=== PATIENT | female | born 1965 | race Caucasian/White ===

== ENCOUNTER 2016-10-16 09:09 | Inpatient (IN) ==
--- NOTE | 2016-10-15 20:46 | Discharge Summary ---
<Marcela Frank - Last Filed: 10/15/16 20:44> Date of Encounter: 10/17/16 - Discharge Diagnosis (1) Arthritis of knee, left Priority: Primary Status: Acute (2) HTN (hypertension) Priority: Secondary Status: Chronic Qualifiers: Hypertension type: essential hypertension Qualified Code(s): I10 - Essential (primary) hypertension (3) GERD (gastroesophageal reflux disease) Priority: Secondary Status: Chronic Qualifiers: Esophagitis presence: esophagitis presence not specified Qualified Code(s) : K21.9 - Gastro-esophageal reflux disease without esophagitis (4) Asthma Priority: Secondary Status: Chronic Qualifiers: Asthma severity: unspecified severity Asthma complication type: uncomplicated Qualified Code(s): J45.909 - Unspecified asthma, uncomplicated (5) Obesity Priority: Secondary Status: Chronic Qualifiers: Obesity type: unspecified obesity type Obesity severity: unspecified obesity severity Qualified Code(s): E66.9 - Obesity, unspecified - Discharge Medications Home Medications: Albuterol Sulfate [Ventolin Hfa] 1 puff IH Q6H PRN 08/02/16 [History] Buspirone HCl [Buspar] 10 mg PO TID 08/02/16 [History] Citalopram Hydrobromide [Citalopram HBr] 40 mg PO DAILY 08/02/16 [History] Cyanocobalamin (Vitamin B-12) [Vitamin B-12] 1,000 mcg SL DAILY 08/02/16 [ History] Gabapentin [Neurontin] 800 mg PO QID 08/02/16 [History] Lisinopril [Zestril] 10 mg PO DAILY 08/02/16 [History] Loratadine [Claritin] 10 mg PO DAILY 08/02/16 [History] Meloxicam 15 mg PO DAILY 08/02/16 [History] Methocarbamol [Robaxin] 750 mg PO TID 08/02/16 [History] Montelukast [Singulair] 10 mg PO DAILY 08/02/16 [History] Omeprazole [PriLOSEC] 40 mg PO DAILY 08/02/16 [History] SUMAtriptan Succinate [Imitrex] 100 mg PO DAILY PRN 08/02/16 [History] TraZODone 50 - 100 mg PO HS 08/02/16 [History] Vitamin E 1,000 unit PO DAILY 08/02/16 [History] Aspirin Enteric Coated [Aspirin EC] 325 mg PO DAILY #21 tablet. 10/15/16 [Rx] Enoxaparin [Lovenox] 30 mg SQ Q12HR #20 syr 10/15/16 [Rx] OxyCODONE Immed Rel [Roxicodone 5 MG] 5 mg PO Q6HR PRN #40 tablet 10/15/16 [Rx] Calcium Carbonate [Calcium] 600 mg PO DAILY 10/16/16 [History] HYDROcodone/Acet 7.5/325 mg [Etlan 7.5-325 mg] 1 tab PO TID PRN 10/16/16 [ History] Ipratropium [place] 2 spr NS DAILY PRN 10/16/16 [History] Mometasone/Formoterol [Dulera 200 Mcg/5 Mcg Inhaler] 2 puff IH BID 10/16/16 [ History] Multivitamin [Multi-Day Vitamins] 1 each PO DAILY 10/16/16 [History] Promethazine/Dextromethorphan [Promethazine-Dm Syrup] 5 ml PO Q6H PRN 10/16/16 [ History] Topiramate [Topamax] 50 mg PO BID 10/16/16 [History] Allergies/Adverse Reactions: Allergies aspirin Adverse Reaction (Verified 10/16/16 10:20) Nausea ibuprofen Adverse Reaction (Verified 10/16/16 10:20) Nausea naproxen [From Aleve] Adverse Reaction (Verified 10/16/16 10:20) Nausea Primary care physician: Angela Sepulveda DO - Patient Status Disposition: Home, Self-Care Condition: Good - Discharge Instructions Follow Up With: Steven Maddox MD [Partnered Physician] - 11/14/16 10:30 am Marcela Frank PAC [Physician Strickler Attendant] - 10/26/16 9:15 am Jewel Suresh DO [Partnered Physician] - 11/08/16 11:00 am Angela Sepulveda DO [Primary Care Provider] - 11/08/16 8:30 am - Hospital Course Hospital course: Ms. Krueger is a 51 year old female - Time Spent with Patient Total time spent providing and/or coordinating discharge services: <Steven Maddox - Last Filed: 10/18/16 08:46> Date of Encounter: 10/18/16 Time of Encounter: 08:46 - Discharge Diagnosis (1) Arthritis of knee, left Priority: Primary Status: Acute (2) Asthma Priority: Secondary Status: Chronic Qualifiers: Asthma severity: unspecified severity Asthma complication type: uncomplicated Qualified Code(s): J45.909 - Unspecified asthma, uncomplicated (3) GERD (gastroesophageal reflux disease) Priority: Secondary Status: Chronic Qualifiers: Esophagitis presence: esophagitis presence not specified Qualified Code(s) : K21.9 - Gastro-esophageal reflux disease without esophagitis (4) HTN (hypertension) Priority: Secondary Status: Chronic Qualifiers: Hypertension type: essential hypertension Qualified Code(s): I10 - Essential (primary) hypertension (5) Obesity Priority: Secondary Status: Chronic Qualifiers: Obesity type: unspecified obesity type Obesity severity: unspecified obesity severity Qualified Code(s): E66.9 - Obesity, unspecified Primary care physician: Angela Sepulveda DO - Patient Status Functional capacity at discharge: uses cane/walker Overall status at discharge: patient is progressing back to baseline - Hospital Course Hospital course: Ms. Krueger is a 51 year old female The patient had an uneventful postoperative course. They received antibiotics and physical therapy and were discharged in stable condition. There will follow -up in the office in 2 weeks. - Time Spent with Patient Total time spent providing and/or coordinating discharge services:
[2016-10-16] MEDS ORDERED: *HR* Propofol 200 MG/20 ML VIAL IVP ONE (09:12)
[2016-10-16] MEDS ORDERED: Lidocaine -MPF 2% 2 ML VIAL ONE (09:12)
[2016-10-16] MEDS ORDERED: *HR* FentaNYL (PF) 100 MCG/2 ML VIAL ONE (09:12)
[2016-10-16] MEDS ORDERED: *HR* Midazolam HCl 2 MG/2 ML VIAL ONE ×2 (09:12→10:19)
[2016-10-16] MEDS ORDERED: CeFAZolin Pre 2,000 MG/100 ML 2,000 MG/100 ML BAG IVPB ONE (09:29)
[2016-10-16] MEDS ORDERED: Albuterol 2.5 MG/3 ML NEBULIZER IH ONE (09:29)
--- NOTE | 2016-10-16 09:37 | History & Physical Report ---
Date of Encounter: 10/16/16 Time of Encounter: 09:37 24 Hour HP Update - Instructions Instructions: If the History and Physical is less than 30 days old and was completed prior to A.M. admission and or procedure and has NOT been updated on calendar day of procedure please complete this update prior to performing procedure. - Update Patient reports changes in Medical Condition: No Changes in assessment/condition: No Changes in Medication: No Preop tests/diagnostics Reviewed: Yes Surgery Remains Indicated: Yes Consent for Planned Operative Procedure(s) Verified: Yes - Pre-Operative Checklist Preoperative Checklist Indicated: No Prophylactic Antibiotic Ordered: Yes Is VTE Prophylaxis Indicated?: Yes
--- NOTE | 2016-10-16 09:41 | Anesthesia Evaluation PreOp ---
Date of Encounter: 10/16/16 Time of Encounter: 09:38 - Past History Planned Operation: Left TKA Cardiac History: HTN Pulmonary History: Smoker, Pack/yr (1ppd for 30 yrs), Asthma [employer] History: Denies Any Significant HX Other Medical History: Diabetes Type II (Grreat control of Diabetes), GERD, Other (anxiety) Anesthesia History: No Prior Anesthetic Complications, Past Anesthesia ( Multiple orthopedic procedures, cholecystectomy, uterine ablation) : No Test: Negative Alcohol Use: none, rarely Drug use: none Medications and Allergies Albuterol Sulfate [Ventolin Hfa] 2 puff IH Q4H PRN 08/02/16 [History] Buspirone HCl [Buspar] 10 mg PO TID 08/02/16 [History] Calcium/Magnesium/Vit D3 [Calcium 500 mg Tablet] 1 each PO DAILY 08/02/16 [ History] Citalopram Hydrobromide [Citalopram HBr] 40 mg PO DAILY 08/02/16 [History] Cyanocobalamin (Vitamin B-12) [Vitamin B-12] 1,000 mcg SL DAILY 08/02/16 [ History] Fluticasone/Salmeterol [Advair 500-50 Diskus] 1 each IH BID 08/02/16 [History] Gabapentin [Neurontin] 800 mg PO QID 08/02/16 [History] HYDROcodone/Acet 7.5/325 mg [[place] 7.5-325 mg] 1 tab PO Q6H PRN #10 tablet 08/02 [Rx] Lisinopril [Zestril] 10 mg PO DAILY 08/02/16 [History] Loratadine [Claritin] 10 mg PO DAILY 08/02/16 [History] Meloxicam 15 mg PO DAILY 08/02/16 [History] Methocarbamol [Robaxin] 750 mg PO Q4H 08/02/16 [History] Montelukast [Singulair] 10 mg PO DAILY 08/02/16 [History] Omeprazole [PriLOSEC] 40 mg PO DAILY 08/02/16 [History] SUMAtriptan Succinate [Imitrex] 100 mg PO DAILY PRN 08/02/16 [History] TraZODone 50 mg PO HS 08/02/16 [History] Vitamin E 1,000 unit PO DAILY 08/02/16 [History] Aspirin Enteric Coated [Aspirin EC] 325 mg PO DAILY #21 tablet. 10/15/16 [Rx] Enoxaparin [Lovenox] 30 mg SQ Q12HR #20 syr 10/15/16 [Rx] OxyCODONE Immed Rel [Roxicodone 5 MG] 5 mg PO Q6HR PRN #40 tablet 10/15/16 [Rx] Allergies aspirin Adverse Reaction (Verified 08/02/16 09:17) Nausea ibuprofen Adverse Reaction (Verified 08/02/16 09:17) Nausea naproxen [From Aleve] Adverse Reaction (Verified 08/02/16 09:17) Nausea - Meds/Allergy Pre-op Review Medications Reviewed: Yes Allergies Reviewed: Yes Beta Blockers on Current Med List: No Anesthesia Results - Labs Laboratory Tests 07/26/16 10/10/16 10/10/16 10:51 11:01 11:01 WBC 4.1 L Hgb 12.5 Hct 38.0 Plt Count 104 L PT 9.8 INR 0.9 APTT 31.4 Sodium Potassium BUN Creatinine Hemoglobin A1c 4.5 Serum , Qual 10/10/16 10/10/16 11:01 11:01 WBC Hgb Hct Plt Count PT INR APTT Sodium 140 Potassium 4.5 BUN 22 H Creatinine 0.89 Hemoglobin A1c Serum , Qual Negative - Imaging EKG: report reviewed Anesthesia Exam Selected Entries 10/16/16 09:27 Temperature 97.7 F Pulse Rate 87 Respiratory Rate 18 Blood Pressure 109/68 O2 Sat by Pulse Oximetry 97 Height: 62in Weight: 214lbs NPO (# of Hours): 8 Pain Scale: 1 Pain Scale Used: Numeric (1 - 10) - HEENT Pupil (Motor): EOMI Mallampati: II Teeth: Edentulous (edentulous upper, full and intact on lower) Oral Opening: Greater than 3 - [employer] LOC: Oriented [employer] Motor: Normal RUE, Normal LUE, Normal RLE, Normal LLE, Normal Face [employer] Sensory: Normal: RUE, LUE, RLE, LLE, Face - Cardiac Rhythm: Regular Murmur: None - Pulmonary Breath Sounds: bilateral Clear Respiratory Effort: Symmetrical (smells heaily of tabacco. Had cigarette this morning.) Anesthesia Assess/Plan ASA Score: 2 Modified Hesham Scale for Level of Consciousness: Cooperative, oriented, and tranquil Anesthetic Plan: General Monitoring Plan: Standard Monitors Recovery Plan: PACU (Discussed risks of GA. Discussed nerve block. Agrees to both. Questions answered. Will proceed.)
[2016-10-16] MEDS: Ringers Solution, Lactated 1,000 ML IVC SCH ×2 (09:42→12:18)
[2016-10-16] MEDS ORDERED: Tetracaine/PF 20 MG/2 ML AMPUL SPINA ONE (10:12)
[2016-10-16] MEDS ORDERED: *HR* Phenylephrine 10 MG/ML VIAL ONE (10:44)
--- NOTE | 2016-10-16 10:53 | Anesthesia Procedures ---
Date of Encounter: 10/16/16 Time of Encounter: 10:51 Procedures: Anesthesia - Nerve Block Procedure Date: 10/16/16 Time: 10:30 Allergies/Adv Reactions: Allergies aspirin Adverse Reaction (Verified 10/16/16 10:20) Nausea ibuprofen Adverse Reaction (Verified 10/16/16 10:20) Nausea naproxen [From Aleve] Adverse Reaction (Verified 10/16/16 10:20) Nausea Pre-op Diagnosis: oa left knee Surgical Procedure: left tka Checklist: Correct Patient Identifier, Correct procedure, History checked Correct side: Left Blood Thinner: No Monitor Applied: EKG, BP, Pulse Oximetry Supplemental Oxygen via Nasal Cannula (L/min): 2 Sedation: Versed (mg): 4 Sedation: Fentanyl (mcg): 100 Indication: Post Op Analgesia Pre-op Neuro Deficits: No Block Type: Femoral Catheter placed: No Sterile Technique: Yes Ultrasound used: Yes Anatomy identified: Yes Visual spread of Local: Yes Neuro Stimulation: Yes Nerve Stimulator Range: 0.2 - 0.4 mA Blood on Needle Aspiration: No Smooth Injection of Local: Yes Pain with Injection of Local: No Prep: Chlorhexadine Needle: 22 x 50 mm Stimuplex Local: Other (0.5% bupivicaine with tetracaine 20mg (2ML)) Volume (cc): 32 Number of Attempts: 1 Complications: None/effective block Vitals: SEE NURSES NOTES Comments: PERIPHERAL NERVE BLOCK UNDER ULTRASOUND FOR POST OP PAIN RELIEF PER DR BRYANT REQUEST
[2016-10-16] MEDS ORDERED: *HR* Labetalol 100 MG/20 ML MDV IVP PRN (10:54)
[2016-10-16] MEDS ORDERED: *HR* HYDROmorphone 2 MG/ML SYRINGE ONE (10:55)
[2016-10-16] MEDS ORDERED: Dexamethasone 4 MG/ML VIAL ONE (11:07)
[2016-10-16] MEDS ORDERED: Ondansetron 4 MG/2 ML VIAL ONE (11:07)
--- NOTE | 2016-10-16 11:14 | Orthopedic Operative Note ---
Date of procedure: 10/16/16 Pre-op diagnosis: Left knee arthritis Post-op diagnosis: same Procedure: Procedure: Left Total knee replacement Estimated blood loss: 200 cc Hardware: Arthrex Femur: 5 Tibia: 4 PS insert: 14 Patella: 34 Exam Under anesthesia: Full extension and full flexion no instability Procedural Notes: Grade 3 arthritic changes medial compartment patellofemoral joint Operative procedure: The patient was brought to the operating room and placed on the operating room table. After general anesthesia was administered the operative knee was examined. Findings were noted in the exam under anesthesia. The operative extremity was prepped and draped in sterile surgical fashion. The patient received IV antibiotics prior to skin incision. A standard midline incision was made centered over the patella. The incision was made through the skin and subcutaneous tissue. A medial parapatellar tendon approach was performed. Care was taken to preserve tissue along the medial aspect of the patella. And to protect the patella tendon. The deep MCL was released off the medial tibia. The infra patella fat pad was excised. Knee was brought into flexion. Patient noted to have grade 3 arthritic changes medial compartment and patellofemoral joint. The entry hole was made for the intramedullary femoral guide. The guide was seated in 6 degrees of valgus. Anterior cut was made followed by the distal cut. The ACL the PCL the medial and the lateral menisci were excised. The tibia was subluxed forward. The entry hole was made for the intramedullary tibial guide. Guide was seated to resect 2 mm off the more abnormal side. The knee was brought into flexion the distal femur was sized to a 5. The femoral guide was seated, the anterior cut was made followed by the posterior condylar cut, followed by the chamfer cuts. The finishing guide was seated the box cut was made and the lug holes were drilled. The tibia was sized to a 4, the tibial tray was seated and prepared with the large drill followed by the fin cutter. Trial reduction revealed full extension no varus valgus instability with the appropriate 14 PS Melanie. The patella was everted and cut was made at the level of the insertion of the quadriceps and patella tendon. The patella was sized to a 34 the guide was seated and the lug holes are drilled. Trial reduction revealed excellent patella tracking. All trial components were removed all bony surfaces were irrigated. The tibia was cemented first followed by the femur. The 14 PS Melanie was seated and the knee was brought into full extension. The patella was cemented and held in place with the patellar holding clamp. After the cement had hardened, the knee sat for 2 minutes with a Betadine saline solution. The knee was then irrigated out with 2 L of pulse irrigation. The extensor mechanism was closed with #2 FiberWire suture and #2 PDS suture. The subcutaneous tissue was then irrigated and closed deep with #1 PDS suture superficially with 0 PDS suture and skin was closed with skin mariaa and Dermabond. The patient was then placed in a sterile dressing and a postoperative brace extubated and transferred to recovery room in stable condition. Anesthesia: JULIA Surgeon: Steven Maddox Fashion Adviser: Marcela Frank Condition: stable Disposition: PACU
[2016-10-16] MEDS ORDERED: Ketorolac 30 MG/ML VIAL ONE (11:38)
[2016-10-16] MEDS: *HR* HYDROmorphone (PF) 1 MG/ML SYRINGE IVP PRN ×3 (11:50→21:43)
[2016-10-16 12:15] LABS: Hemoglobin 12.4 g/dL (11.5-15.4)
--- NOTE | 2016-10-16 12:40 | Anesthesia Evaluation Post Op ---
Date of Encounter: 10/16/16 Time of Encounter: 12:40 - Vital Signs Vital Signs: Vital Signs/O2 Sat/Glucose, Most Current Temp Pulse Resp BP Pulse Ox 10/16/16 12:32 99.1 F 64 16 101/61 100 10/16/16 12:22 99.1 F 59 16 98/63 98 10/16/16 12:12 99.1 F 63 16 97/59 97 10/16/16 12:02 53 16 92/50 98 10/16/16 11:52 59 18 91/65 99 10/16/16 11:42 99.2 F 56 20 97/36 97 10/16/16 10:27 78 99/62 97 10/16/16 10:23 81 116/68 98 10/16/16 09:45 18 109/68 97 10/16/16 09:27 97.7 F 87 18 109/68 97 - Lungs Lungs: Clear Ascult./Percussion - Airway Airway: Non-obstructed - Cardiovascular Regular Rate - Mental Status Mental Status: Alert & Oriented, Answers Appropriately - Pain Pain Scale: 0 - Hydration Hydration: Ice chips - Discharge PostOp Status: Transfer Patient to floor
[2016-10-16] MEDS ORDERED: Albuterol Neb 1.25 MG/3 ML VIAL IH ONE (13:12)
[2016-10-16] MEDS ORDERED: Acetaminophen 325 MG TABLET PO PRN (13:12)
[2016-10-16] MEDS ORDERED: (Ipratropium Bromide [Ipratropium Bromide] 2 SPR) NS PRN (13:12)
[2016-10-16] MEDS ORDERED: PROMETHAZINE PO PRN (13:12)
[2016-10-16] MEDS ORDERED: Ondansetron 4 MG/2 ML VIAL IVP PRN (13:12)
[2016-10-16] MEDS ORDERED: MOM Conc 10 ML UD.LIQ PO PRN (13:12)
[2016-10-16] MEDS ORDERED: Temazepam 15 MG CAPSULE PO PRN (13:12)
[2016-10-16] MEDS ORDERED: DEXTROMETHORPHAN PO PRN (13:12)
[2016-10-16] MEDS ORDERED: Sennosides 8.6 MG TABLET PO PRN (13:12)
[2016-10-16] MEDS ORDERED: Naloxone 0.4 MG/ML INJ IVP PRN (13:12)
[2016-10-16] MEDS ORDERED: Ringers Solution, Lactated 1,000 ML IVC SCH (13:12)
[2016-10-16] MEDS ORDERED: *HR* OxyCODONE Immed Rel 5 MG TABLET PO PRN (13:12)
[2016-10-16] MEDS ORDERED: SUMAtriptan succinate 50 MG TABLET PO PRN (13:12)
[2016-10-16] MEDS: *HR* OxyCODONE Immed Rel 5 MG TABLET PO PRN ×2 (13:25→19:22)
[2016-10-16] MEDS: Gabapentin 400 MG CAPSULE PO SCH ×3 (14:12→21:42)
[2016-10-16] MEDS: Methocarbamol 750 MG TABLET PO SCH ×2 (14:18→21:42)
[2016-10-16] MEDS: ceFAZolin 2,000 MG in D5% in Water 100 ML IVPB SCH (16:43)
[2016-10-16] MEDS: *HR* Enoxaparin 30 MG/0.3 ML SYRINGE SQ SCH (16:43)
[2016-10-16] MEDS ORDERED: *HR* Enoxaparin 30 MG/0.3 ML SYRINGE SQ SCH (18:00)
[2016-10-16] MEDS: Topiramate 25 MG TABLET PO SCH (21:42)
[2016-10-16] MEDS: (Mometasone/Formoterol [Dulera 200 Mcg/5 Mcg Inhaler] IH SCH (21:43)
[2016-10-16] MEDS: traZODone 50 MG TABLET PO SCH (22:57)
[2016-10-17] MEDS: ceFAZolin 2,000 MG in D5% in Water 100 ML IVPB SCH (00:32)
[2016-10-17] MEDS: *HR* OxyCODONE Immed Rel 5 MG TABLET PO PRN ×5 (00:36→19:58)
[2016-10-17] MEDS: *HR* HYDROmorphone (PF) 1 MG/ML SYRINGE IVP PRN ×3 (03:59→12:36)
[2016-10-17 05:20] LABS: Hematocrit 33.6 % (35.3-44.9); Hemoglobin 11.1 g/dL (11.5-15.4)
[2016-10-17 05:34] LABS: BUN/Creatinine Ratio 17 (6-26); Blood Urea Nitrogen 12 mg/dL (7-20); Calcium 8.5 mg/dL (8.6-10.8); Carbon Dioxide 20 mEq/L (19-29); Chloride 107 mEq/L (98-109); Glucose 108 mg/dL (70-99); Osmolality,Calculated 284 (280-300); Potassium 3.7 mEq/L (3.5-4.5); Sodium 137 mEq/L (136-145); eGFR For African Americans > 60 (> 60); eGFR For Non-African Americans > 60 (> 60)
[2016-10-17] MEDS: *HR* Enoxaparin 30 MG/0.3 ML SYRINGE SQ SCH ×2 (05:54→17:06)
--- NOTE | 2016-10-17 06:25 | Orthopedics Progress Note ---
Date of Encounter: 10/17/16 Time of Encounter: 06:25 - Assessment and Plan (1) Arthritis of knee, left Current Visit: Yes Status: Acute (2) Asthma Current Visit: Yes Status: Chronic Qualifiers: Asthma severity: unspecified severity Asthma complication type: uncomplicated Qualified Code(s): J45.909 - Unspecified asthma, uncomplicated (3) GERD (gastroesophageal reflux disease) Current Visit: Yes Status: Chronic Qualifiers: Esophagitis presence: esophagitis presence not specified Qualified Code(s) : K21.9 - Gastro-esophageal reflux disease without esophagitis (4) HTN (hypertension) Current Visit: Yes Status: Chronic Qualifiers: Hypertension type: essential hypertension Qualified Code(s): I10 - Essential (primary) hypertension (5) Obesity Current Visit: Yes Status: Chronic Qualifiers: Obesity type: unspecified obesity type Obesity severity: unspecified obesity severity Qualified Code(s): E66.9 - Obesity, unspecified Subjective Interval history: Patient was seen this morning doing well without complaints. Afebrile vital signs stable. Operative extremity: Neurovascularly intact Dressing clean dry and intact Calves nontender Assessment and plan: Continue with postoperative care Hematocrit 33 Objective Vital signs: Vital Signs Temp Pulse Resp BP Pulse Ox 10/17/16 04:00 98.0 F 79 19 107/59 99 10/17/16 00:00 98.3 F 78 18 104/64 96 10/16/16 20:22 98.7 F 82 18 103/68 97 10/16/16 16:26 98.1 F 70 16 97 10/16/16 16:20 16 98 10/16/16 15:14 98.0 F 67 16 105/68 98 10/16/16 14:10 97.4 F L 67 12 98/64 98 10/16/16 13:13 97.6 F 60 16 100/67 100 10/16/16 12:42 99.1 F 63 16 99/65 99 10/16/16 12:32 99.1 F 64 16 101/61 100 10/16/16 12:22 99.1 F 59 16 98/63 98 10/16/16 12:12 99.1 F 63 16 97/59 97 10/16/16 12:02 53 16 92/50 98 10/16/16 11:52 59 18 91/65 99 10/16/16 11:42 99.2 F 56 20 97/36 97 10/16/16 10:27 78 99/62 97 10/16/16 10:23 81 116/68 98 10/16/16 09:45 18 109/68 97 10/16/16 09:27 97.7 F 87 18 109/68 97 Intake and Output 10/16/16 10/16/16 10/17/16 15:59 23:59 07:59 Intake Total 1100 / 1100 900 / 900 Output Total 200 / 200 550 / 550 1400 / 1400 Balance 900 / 900 350 / 350 -1400 / -1400 Intake: IV Fluids 1100 / 1100 100 / 100 Lactated Ringers 1,000 ML 1000 / 1000 @ 75 mls/hr IVC .[id number] REANNA Rx#:[id number] Ancef 2,000 MG In 100 / 100 Dextrose 5% 100 ML @ 200 mls/hr IVPB Q8H REANNA Rx#: [id number] Ancef Premix 2,000 MG/100 100 / 100 ML 2,000 mg In 100 ml @ 200 mls/hr IVPB PREOP ONE Rx#:[id number] Oral 800 / 800 Output: Urine 550 / 550 1400 / 1400 Estimated Blood Loss 200 / 200 Other: Weight 97.069 kg Blood Glucose* 118 - Labs CBC & BMP: 10/17/16 05:02 10/17/16 05:02 Labs: Abnormal lab results Hgb 11.1 g/dL (11.5-15.4) L 10/17/16 05:02 Hct 33.6 % (35.3-44.9) L 10/17/16 05:02 Glucose 108 mg/dL (70-99) H 10/17/16 05:02 POC Glucose 118 (58-89) H 10/16/16 20:47 Calcium 8.5 mg/dL (8.6-10.8) L 10/17/16 05:02 - VTE Documentation of Mechanical Device: Venous foot pump, device Consult Discharge Plan - Plan Referrals: Steven Maddox MD [Partnered Physician] - 11/14/16 10:30 am Marcela Frank, PAC [Physician Clearing House Clerk] - 10/26/16 9:15 am Jewel Suresh DO [Partnered Physician] - 11/08/16 11:00 am Angela Sepulveda DO [Primary Care Provider] - 11/08/16 8:30 am
[2016-10-17] MEDS: Cyanocobalamin (B-12) 1,000 MCG TABLET PO SCH (07:27)
[2016-10-17] MEDS: Methocarbamol 750 MG TABLET PO SCH ×3 (07:28→19:57)
[2016-10-17] MEDS: Gabapentin 400 MG CAPSULE PO SCH ×4 (07:28→19:57)
[2016-10-17] MEDS: (Vitamin E [Vitamin E] 1,000 UNIT) PO SCH (07:29)
[2016-10-17] MEDS: Topiramate 25 MG TABLET PO SCH ×2 (07:29→19:58)
[2016-10-17] MEDS: (Mometasone/Formoterol [Dulera 200 Mcg/5 Mcg Inhaler] IH SCH ×2 (07:29→19:59)
[2016-10-17] MEDS: Multivit/Ca/Min/Fe/FA 1 TAB TABLET PO SCH (07:29)
[2016-10-17] MEDS: Loratadine 10 MG TABLET PO SCH (07:29)
[2016-10-17] MEDS: traZODone 50 MG TABLET PO SCH (19:57)
[2016-10-18] MEDS: *HR* OxyCODONE Immed Rel 5 MG TABLET PO PRN ×4 (00:16→15:27)
[2016-10-18] MEDS: *HR* HYDROmorphone (PF) 1 MG/ML SYRINGE IVP PRN (03:59)
[2016-10-18] MEDS: *HR* Enoxaparin 30 MG/0.3 ML SYRINGE SQ SCH (06:23)
[2016-10-18 06:39] LABS: Hematocrit 32.6 % (35.3-44.9); Hemoglobin 10.8 g/dL (11.5-15.4)
[2016-10-18 06:51] LABS: BUN/Creatinine Ratio 11 (6-26); Blood Urea Nitrogen 7 mg/dL (7-20); Calcium 8.9 mg/dL (8.6-10.8); Carbon Dioxide 20 mEq/L (19-29); Chloride 105 mEq/L (98-109); Glucose 109 mg/dL (70-99); Osmolality,Calculated 281 (280-300); Potassium 3.8 mEq/L (3.5-4.5); Sodium 136 mEq/L (136-145); eGFR For African Americans > 60 (> 60); eGFR For Non-African Americans > 60 (> 60)
[2016-10-18] MEDS: Gabapentin 400 MG CAPSULE PO SCH ×2 (08:12→12:27)
[2016-10-18] MEDS: Multivit/Ca/Min/Fe/FA 1 TAB TABLET PO SCH (08:12)
[2016-10-18] MEDS: Loratadine 10 MG TABLET PO SCH (08:13)
[2016-10-18] MEDS: Methocarbamol 750 MG TABLET PO SCH ×2 (08:14→15:27)
[2016-10-18] MEDS: Cyanocobalamin (B-12) 1,000 MCG TABLET PO SCH (08:14)
[2016-10-18] MEDS: (Vitamin E [Vitamin E] 1,000 UNIT) PO SCH (08:15)
[2016-10-18] MEDS: (Mometasone/Formoterol [Dulera 200 Mcg/5 Mcg Inhaler] IH SCH (08:15)
[2016-10-18] MEDS: Topiramate 25 MG TABLET PO SCH (08:15)
--- NOTE | 2016-10-18 08:47 | Orthopedics Progress Note ---
Date of Encounter: 10/18/16 Time of Encounter: 08:46 - Assessment and Plan (1) Arthritis of knee, left Current Visit: Yes Status: Acute (2) Asthma Current Visit: Yes Status: Chronic Qualifiers: Asthma severity: unspecified severity Asthma complication type: uncomplicated Qualified Code(s): J45.909 - Unspecified asthma, uncomplicated (3) GERD (gastroesophageal reflux disease) Current Visit: Yes Status: Chronic Qualifiers: Esophagitis presence: esophagitis presence not specified Qualified Code(s) : K21.9 - Gastro-esophageal reflux disease without esophagitis (4) HTN (hypertension) Current Visit: Yes Status: Chronic Qualifiers: Hypertension type: essential hypertension Qualified Code(s): I10 - Essential (primary) hypertension (5) Obesity Current Visit: Yes Status: Chronic Qualifiers: Obesity type: unspecified obesity type Obesity severity: unspecified obesity severity Qualified Code(s): E66.9 - Obesity, unspecified Subjective Interval history: Patient was seen this morning doing well without complaints. Afebrile vital signs stable. Operative extremity: Neurovascularly intact Dressing clean dry and intact Calves nontender Assessment and plan: Continue with postoperative care Discharged today Objective Vital signs: Vital Signs Temp Pulse Resp BP Pulse Ox 10/18/16 07:52 98.7 F 76 16 105/59 96 10/18/16 06:37 98.0 F 90 18 105/67 94 L 10/18/16 01:29 98.0 F 84 16 120/74 92 L 10/17/16 21:41 98.5 F 80 15 116/72 95 10/17/16 15:24 98.6 F 72 16 95/61 97 10/17/16 10:57 98.1 F 70 16 113/70 98 10/17/16 10:05 61 99/68 Intake and Output 10/17/16 10/18/16 10/18/16 23:59 07:59 15:59 Intake Total 300 / 300 480 / 480 Output Total 500 / 500 Balance 300 / 300 -20 / -20 Intake: Oral 300 / 300 480 / 480 Output: Urine 500 / 500 Other: # Voids 150 1 Blood Glucose* 138 111 - Labs CBC & BMP: 10/18/16 06:20 10/18/16 06:20 Labs: Abnormal lab results Hgb 10.8 g/dL (11.5-15.4) L 10/18/16 06:20 Hct 32.6 % (35.3-44.9) L 10/18/16 06:20 Glucose 109 mg/dL (70-99) H 10/18/16 06:20 POC Glucose 138 (58-89) H 10/17/16 20:08 - VTE Documentation of Mechanical Device: Venous foot pump, device Consult Discharge Plan - Plan Referrals: Steven Maddox MD [Partnered Physician] - 11/14/16 10:30 am Marcela Frank PAC [Physician Disability Insurance Claim Examiner] - 10/26/16 9:15 am Jewel Suresh DO [Partnered Physician] - 11/08/16 11:00 am Angela Sepulveda DO [Primary Care Provider] - 11/08/16 8:30 am
[2016-10-18 11:37] VITALS: BP 102/65
[2016-10-18] MEDS ORDERED: FLU VACC QS2016-17 36MOS UP/PF 0.5 ML SYRINGE IM ONE (12:14)
== END 2016-10-18 16:10 | disposition home or self-care (01) | DRG 302 ==
LOC: SAMDAY 09:09 → 3NENU 13:08
PROVIDERS: ADMIT Orthopaedic Surgery; ATTEND Orthopaedic Surgery